=== PATIENT | female | born 1945 | race Caucasian/White ===

== ENCOUNTER → 2024-09-29 12:43 | Outpatient (REF) | payer MEDICARE, OTHER, SELFPAY | LOC: WDC 12:43 | PROVIDERS: ATTENDING PHYSICIAN Internal Medicine | DX: Z12.31 Encounter for screening mammogram for malignant neoplasm of breast (principal); Z13.820 Encounter for screening for osteoporosis; E55.9 Vitamin D deficiency, unspecified; Z78.0 Asymptomatic menopausal state | CPT/HCPCS: 77063; 77067; 77080 ==